=== PATIENT | female | born 1980 | race African-American/Black ===

== ENCOUNTER 2017-07-03 16:48 | Emergency (ER) | payer MEDICAID ==
[2017-07-03 17:34] VITALS: TEMP 97.4; O2SAT 100
[2017-07-03 17:48] LABS: BASOPHILS % (AUTO) 1 % (0-3); EOSINOPHILS % (AUTO) 2 % (0-9); HEMATOCRIT 41 % (35-47); MEAN CORPUSCULAR HGB CONC 35.7 gm/dl (32.0-36.0); MEAN CORPUSCULAR VOLUME 90 fL (81-99); MONOCYTES % (AUTO) 4.5 % (0-12); NEUTROPHILS % (AUTO) 61.9 % (37-80)
[2017-07-03 17:55] LABS: APPEARANCE,URINE Clear; BILIRUBIN,URINE NEGATIVE (NEGATIVE); COLOR,URINE Yellow; GLUCOSE, URINE (UA) NEGATIVE (NEGATIVE); KETONES,URINE NEGATIVE (NEGATIVE); LEUKOCYTE ESTERASE ,URINE TRACE (NEGATIVE); NITRATE,URINE NEGATIVE (NEGATIVE); OCCULT BLOOD,URINE NEGATIVE (NEG-TRACE); PH,URINE 5.5; UROBILINOGEN,URINE 0.2 (0.2-1.0 EU)
[2017-07-03 18:02] LABS: ALBUMIN 3.6 gm/dl (3.4-5.0); CALCIUM 8.8 mg/dl (8.5-10.1)
[2017-07-03 18:09] LABS: RBC,URINE NEG (0-3AV/HPF)
[2017-07-03 18:40] VITALS: BP 125/88; PULSE 60; RESP 20
[2017-07-03] MEDS ORDERED: KETOROLAC TROMETHAMINE 30 MG/ML SOL IM ONE (19:47)
[2017-07-03] MEDS ORDERED: KETOROLAC TROMETHAMINE 30 MG/ML SOL ONE (19:57)
== END 2017-07-03 20:05 | disposition home or self-care (01) | DRG 761 ==
LOC: ED 16:48
DX: N94.0 Mittelschmerz (principal); N75.0 Cyst of Bartholin's gland
CPT/HCPCS: 36415; 74177; 80053; 81001; 82150; 84703; 85025; 96372; 99283; 99284; J1885; Q9967

== ENCOUNTER 2017-10-20 23:52 | Emergency (ER) | payer SELFPAY ==
[2017-10-21] MEDS ORDERED: SODIUM CHLORIDE 0.9% 1000ML 1,000 ML IV ONE (00:25)
[2017-10-21] MEDS ORDERED: ONDANSETRON HCL 4 MG/2 ML 4 MG in SODIUM CHLORIDE 0.9% 100 ML 100 ML IV ONE (00:25)
[2017-10-21] MEDS ORDERED: LORAZEPAM 2 MG/ML SOL IV ONE (00:26)
[2017-10-21] MEDS ORDERED: KETOROLAC TROMETHAMINE 30 MG/ML SOL IV ONE ×2 (00:27→01:55)
[2017-10-21] MEDS ORDERED: ONDANSETRON HCL 4 MG/2 ML SOL ONE (00:40)
[2017-10-21] MEDS ORDERED: KETOROLAC TROMETHAMINE 30 MG/ML SOL ONE (00:40)
[2017-10-21] MEDS ORDERED: LORAZEPAM 2 MG/ML SOL ONE (00:41)
[2017-10-21 00:46] LABS: BASOPHILS % (AUTO) 1 % (0-3); EOSINOPHILS % (AUTO) 1 % (0-9); HEMATOCRIT 38 % (35-47); MEAN CORPUSCULAR HGB CONC 38.2 gm/dl (32.0-36.0); MEAN CORPUSCULAR VOLUME 83 fL (81-99); NEUTROPHILS % (AUTO) 62.2 % (37-80)
[2017-10-21 00:51] LABS: POTASSIUM 3.3 mMol/L (3.5-5.1)
[2017-10-21 00:58] LABS: ANISOCYTOSIS SLIGHT
[2017-10-21 00:59] LABS: TARGET CELLS PRESENT
[2017-10-21 02:31] VITALS: BP 133/87; PULSE 68; RESP 14; TEMP 98; O2SAT 98
== END 2017-10-21 02:15 | disposition home or self-care (01) | DRG 103 ==
LOC: ED 23:52
DX: R51 Headache (principal); E86.0 Dehydration; R53.81 Other malaise; R11.0 Nausea
CPT/HCPCS: 80048; 84703; 85025; 96365; 96374; 96375; 99282; 99285; J1885; J2060; J2405